=== PATIENT | female | born 1990 | race Caucasian/White ===

== ENCOUNTER → 2018-10-13 11:43 | Outpatient (CLI) | payer OTHER, MEDICAID, SELFPAY ==
--- NOTE | 2018-10-13 11:45 | DI.RAD.S_ITS ---
PROCEDURE: XR CHEST 2V INDICATIONS: Ongoing cough TECHNIQUE: 2 views of the chest were acquired. COMPARISON: None. FINDINGS: Surgical changes and devices: None. Lungs and pleura: There is mild elevation of right hemidiaphragm. Mild pulmonary vascular congestion is noted. No focal infiltrate. No pleural effusions or pneumothorax. Mediastinum: Mediastinal contours are normal. Heart size is normal. Bones and chest wall: No suspicious bony abnormalities. Marked S-shaped scoliosis of thoracic lumbar spine is seen. Soft tissues appear unremarkable. IMPRESSION: Elevation of right hemidiaphragm. Mild pulmonary vascular congestion. No focal infiltrate. Dictated by: Sebas Zuñiga M.D. on 10/13/2018 at 12:12 Approved by: Sebas Zuñiga M.D. on 10/13/2018 at 12:28
== END ==
PROVIDERS: PCP Family Medicine; Visit Provider Registered Nurse
DX: R05 Cough (principal); R09.89 Other specified symptoms and signs involving the circulatory and respiratory systems
CPT/HCPCS: 71046

== ENCOUNTER 2018-11-03 09:30 | Outpatient (RCR) | payer OTHER, MEDICAID, SELFPAY ==
--- NOTE | 2018-10-27 18:49 | ST.OPIE ---
Provider Information Visit Care Team Role Provider Type Adry Lizarraga MD Primary Care Provider Physician Specialty: Family Practice Address: [address] [place] [address], [id number] Email: [email or web address] SALLIE Leyva Attending Provider Advanced [employer] Caretaker Specialty: Medical Address: [facility] [place] [address], [id number] Email: Speech-Language Pathology Initial Evaluation LEGAL TRANSCRIBER Clinical Swallow Evaluation Start: 10/27/18 17:28 Freq: Status: Active Protocol: Document 10/27/18 17:28 MARCI (Rec: 10/27/18 18:13 MARCI [email or web address]) Clinical Swallow Evaluation Session Time Visit Start Time 09:30 Visit Stop Time 10:27 Total Visit Minutes 57 Visit Information Visit Number Initial Evaluation Plan of Care Dates 10/27/18 - 01/20/19 Insurance Information [employer] - Adult Referral Referring Physician SALLIE Leyva Reason for Referral Profound developmental delay; excessive oral secretions, aspiration PNA Setting Assessment Location Outpatient Care Visit Type Note Type Initial Evaluation Next Note Type Next Note Type Treatment Note Patient Information Identification Type Name ID Card History The pt is a 28-yr-old female with 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 She is non-verbal, non- ambulatory, and consumes all nutrition and hydration via tube feeding. She was accompanied today by her mother, Jessie, who provided case history and current concerns. She reported that Nisha typically manages her saliva without issue and recovers normally from colds. However, she contracted a cold around Easter of this year and continued with a wet congestive cough and excessive oral secretions. Recent chest x-ray (10/13/18) revealed Elevation of right hemidiaphragm. Mild pulmonary vascular congestion. No focal infiltrate. Nisha was prescribed Scopolamine patch to manage oral secretions but had an adverse reaction, and it was discontinued. She is scheduled to have surgery in December, and her mother is concerned that her continued symptoms may increase her risk of complications during/after surgery. Nisha has a long history of working with Speech Pathologists throughout her school years to assist with communication and with swallow . She was last seen for dysphagia treatment ~15 yrs ago, per parent report. At that time, swallow exercises and other treatments were ineffective in improving Nisha's function and safety for oral intake, and oral trials for taste only increased Nisha's choking and were discontinued. Her mother also reported that Nisha is orally defensive with a tonic bite reflex, making direct oral manipulation or stimulation not feasible, although Nisha has been tolerant of vibratory stimulation on facial muscles. Furthermore, previous medical certification specialist including unionmelt operator have determined that Nisha's receptive language skills are good, per parent report, but she is unable to produce volitional movements to perform swallow and expressive speech/language. Subjective Observations Nisha arrived with her mother on time for her appointment. Throughout the session, Nisha made eye contact with the Clinician, often smiled and made vocalizations intermittently, particularly when asked a question or to do something, such as cough. She did cough periodically throughout the session as well , and the cough was wet and congestive sounding but unproductive. Nisha's mother provided case history and the desire to improve Nisha's swallow function for safe management of saliva and phlegm to reduce the risk of aspiration pneumonia. Evaluation Oral Phase Comments Oral Peripheral Exam was limited secondary to CP and limited ability for the pt to participate. Nisha was unable to perform volitional actions including oral motor tasks, cough, or swallow. Nisha did open and close her jaw repeatedly for ~ 1 minute; she initiated this action independently and continued it while the Clinician mirrored the action. It is not likely that Nisha was mimicking the Clinician, as her mother reported she frequently performs this action. Nisha has natural dentition in good condition. Oral tissues were appropriate in color. She maintained an open mouth throughout the session; her mother reports she never closes her mouth. Buccal strength and coordination appeared normal with smile reflex. Jaw ROM appears to be good, as observed by Nisha's ability to open and close the mandible repeatedly. Nisha exhibited drooling x2 after spontaneous cough, and mild- moderate oral pooling of saliva was observed consistently. Pharyngeal Phase Comments No oral trials were administered for pt safety. Nisha did not appear to be coughing/choking on her saliva ; rather, coughing appeared to be triggered by pulmonary congestion. However, aspiration of saliva cannot be ruled out without instrumental assessment, which is contraindicated for this patient. Cough and swallow responses are moderately weak, increasing the concern that, if Nisha is able to expel phlegm from lungs and trachea, she is not likely able to expel it from her larynx or her throat, increasing the likelihood of aspiration of phlegm back to lungs. Education was provided RE the possibility of NMES treatment via VitalStim to recruit musculature of swallow; however, this was ruled out after Nisha's mother experienced a trial of the electrical stimulation and determined Nisha would not tolerate the sensation. However, it was determined that a trial of dysphagia therapy using vibratory stimulation to elicit spontaneous swallow to increase strength and coordination of swallow musculature would likely be tolerated by the pt, based on previous therapeutic tolerance . The pt's mother agreed to provide the vibratory stimulator to next session. Findings Dysphagia Type Profound Oropharyngeal Dysphagia secondary to CP requiring tube feeding Rehabilitation Potential Fair Impressions The pt presents with profound oropharyngeal dysphagia secondary to CP requiring tube feeding dependence. Oral dysphagia is characterized by minimal volitional control of oral musculature resulting in pooling of saliva with occasional anterior spillage. The pt appears to be managing swallow of saliva pharyngeally , but this cannot be confirmed without instrumental evaluation, which is contraindicated for this patient. Concern of weak cough and pharyngeal management of phlegm is present, as they significantly increase the pt' s risk of aspiration pneumonia . Referral to Respiratory Therapy is recommended for consultation regarding pulmonary illness and treatment options (e.g., cough assist device, etc.). Diet Recommendations Liquids Order NPO Diet Order NPO/Alternative Means of Nutrition/Hydration Medication Recommendations Not Recommended by Mouth Treatment Plan Placement Recommendations after Home Discharge Appropriate for Therapy Yes Therapy Recommendations A trial of dysphagia therapy using vibratory stimulation at exterior facial and laryngeal structures to elicit spontaneous swallow, thereby exercising swallow musculature , is recommended to increase strength and coordination of the swallow mechanism, improve management of secretions at larynx and pharynx, and reduce the pt's risk of aspiration pneumonia and improve general health prior to surgery in December. Exterior stimulation is advisable d/t the pt's oral defensiveness. The pt's mother was in agreement with this. The pt was informed but unable to communicate understanding. Recommend referral to Respiratory Therapy. Dysphagia Goals 1. Using external facial and laryngeal/pharyngeal stimulation as needed, the pt will perform volitional swallows to increase strength and coordination of swallow musculature and decrease risk of aspiration on oral secretions and phlegm. 2. The pt will exhibit improved management of oral secretions and phlegm, as demonstrated by reduced frequency of congestive cough, to reduce risk of aspiration pneumonia. Referrals/Other Recommended Referrals Other
--- NOTE | 2018-11-03 11:44 | ST.IPDYTX ---
Care Team Visit Care Team Role Provider Type Adry Lizarraga MD Primary Care Provider Physician Specialty: Family Practice Address: [address] [place] [address], [id number] Email: [email or web address] SALLIE Leyva Attending Provider Advanced Emergency Services Dispatcher Specialty: Medical Address: [facility] [place] [address], [id number] Email: BELLSTAND ATTENDANT Dysphagia Treatment BELLSTAND ATTENDANT Dysphagia Treatment Start: 10/27/18 17:28 Freq: Status: Active Protocol: Document 11/03/18 11:11 MARCI (Rec: 11/03/18 11:41 MARCI [email or web address]) Dysphagia Treatment Session Time Visit Start Time 09:33 Visit Stop Time 10:19 Total Visit Minutes 52 Visit Information Visit Number 1 Plan of Care Dates 10/27/18 - 01/20/19 Insurance Information [employer] - Adult Setting Assessment Location Outpatient Care Visit Type Note Type Treatment Note Next Note Type Next Note Type Treatment Note Patient Information Subjective Observations The pt arrived on time accompanied by her mother, who was present throughout the session. Mrs. Sanchez reported having an appt with PCP, Dr. Gary Groves, today. This Clinician did speak with SALLIE Leyva, yesterday RE recommendation for referral to Respitory Therapy (RT) for assessment/consultation RE assistance they may be able to provide to treat chest congestion. Florencia agreed to inform Dr. Groves of this recommendation as well as discuss possibility of medicinal help (e.g., decongestant, expectorant) to aid the pt in clearing phlegm from chest. This was discussed today with the pt and her mother, who was agreeable to discussing these topics further with Dr. Groves. Mrs. Sanchez also informed that she has ordered a vibratory stimulator for the pt, but it has not yet arrived . Finally, she informed the pt will be on vacation with her family over the next ~3 wks, during which time Mrs. Sanchez would perform exercises targeted in today's session. Agreed to f/u with this clinician upon their return. Treatment Oral Strategies [place] Other Additional Dysphagia Treatment Laryngeal massage, labial/oral Strategies stimulation with tongue depressor, oral swab Treatment Activities Consulted with pt/mother RE POC, recommendation for RT assessment/consultation, and tx goals. All questions were answered. Initiated oral motor and layrngeal stimulation to increase pt's ability to elicit swallow trigger and volitional swallow to reduce aspiration risk and improve saliva management. Instructed/informed pt of therapeutic treatment strategies orally and with demonstration. Performed labial lip closure stimulation using tongue depressor at upper/lower lips, then slightly higher than lower lip . Given instructions and model to extend lower lip to make contact with the tongue depressor, the pt initially manipulated depressor with tongue. Given increased demonstration and verbal feedback, she opened/closed jaw repetitiously making contact with tongue depressor. Skilled encouragement and verbal feedback provided. Given placement of depressor slightly lower than upper lip, the pt made no attempt with upper lip to make contact with depressor, indicating reduced volitional control of upper lip. Attempted to trigger swallow relex of saliva using an oral swab at lips, then between upper/lower teeth, and between teeth and cheeks. An additional goal of this technique was to reduce oral defensiveness in the event the pt would benefit from suctioning to assist in removal of phlegm from oral or pharyngeal cavities. The pt was accepting of swab at lips and between teeth, and chewed on the swab when placed between the teeth. She was resistant to placement of swab between teeth and cheeks, increasing labial rounding and buccal tightening to prevent, which demonstrated well labial ROM and strength of these muscle groups. Laryngeal and external buccal massage was performed to assist in triggering swallow of saliva. Laryngeal pumping was observed via palpation x1. Throughout the session, the pt exhibited consistent drooling , increased during oral stimulation activities, which was managed by the clinician or pt's mother wiping away for the pt. The pt exhibited no gag reflex during all treatment activities. Assessment Assessment of Improvement The pt responded well to treatment activities with occasional mild-moderate resistance toward stimulation inside the oral cavity. However, as she became familiar with the sensations, particularly those at the lips , she became more accepting. She did not accept an oral swab between teeth and cheeks; however, her response prompted strong rounding of lips and contraction of buccal musculature not otherwise elicited, indicating a good technique for strengthening of these muscle groups. The pt's mother was participatory and responsive throughout the treatment with all activities and demonstrated excellent understanding to facilitate home practice. Diet Recommendations Recommendations Continue Current Diet Liquids Order NPO Diet Order NPO/Alternative Means of Nutrition/Hydration Medication Recommendations Not Recommended by Mouth Treatment Plan Placement Recommendation after Discharge Home Appropriate for Continued Therapy Yes Therapy Recommendations A trial of dysphagia therapy using vibratory stimulation at exterior facial and laryngeal structures to elicit spontaneous swallow, thereby exercising swallow musculature , is recommended to increase strength and coordination of the swallow mechanism, improve management of secretions at larynx and pharynx, and reduce the pt's risk of aspiration pneumonia and improve general health prior to surgery in December. Exterior stimulation is advisable d/t the pt's oral defensiveness. The pt's mother was in agreement with this. The pt was informed but unable to communicate understanding. Recommend referral to Respiratory Therapy. Dysphagia Goals 1. Using external facial and laryngeal/pharyngeal stimulation as needed, the pt will perform volitional swallows to increase strength and coordination of swallow musculature and decrease risk of aspiration on oral secretions and phlegm. 2. The pt will exhibit improved management of oral secretions and phlegm, as demonstrated by reduced frequency of congestive cough, to reduce risk of aspiration pneumonia. Follow Up Plan In 3 wks after the family's vacation Referrals/Other Recommended Referrals Other
== END 2019-02-04 11:06 | disposition home or self-care (01) ==
LOC: SP 09:30
PROVIDERS: PCP Family Medicine; Visit Provider Registered Nurse
DX: R62.50 Unspecified lack of expected normal physiological development in childhood (principal); Z87.09 Personal history of other diseases of the respiratory system; J98.8 Other specified respiratory disorders
CPT/HCPCS: 92526; 92610

== ENCOUNTER → 2024-11-01 12:02 | Outpatient (CLI) | payer OTHER, SELFPAY ==
--- NOTE | 2024-11-01 12:08 | DI.RAD.S_ITS ---
PROCEDURE: XR CHEST 2V INDICATIONS: Please evaluate for aspiration pneumonia. Quadriplegic on G-tube TECHNIQUE: 2 views of the chest were acquired. COMPARISON: [facility], CR, XR CHEST 2V, 10/13/2018, 11:49. FINDINGS: Surgical changes and devices: None. Lungs and pleura: No focal infiltrates are seen. Lung volumes are low. There is elevation of the right hemidiaphragm. Mediastinum: Mediastinal contours are normal. Heart size is normal. Bones and chest wall: No suspicious bony abnormalities. There is significant S shaped scoliosis. The bones demonstrate osteopenia. Soft tissues appear unremarkable. IMPRESSION: No focal infiltrates are identified. Stable elevation of the right hemidiaphragm. Significant S shaped scoliosis. 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 Dictated by: Edwin Rico M.D. on 11/01/2024 at 11:44 Approved by: Edwin Rico M.D. on 11/01/2024 at 11:45
== END ==
PROVIDERS: PCP Family Medicine; Referring Provider Chiropractor; Visit Provider Chiropractor
DX: R05.1 Acute cough (principal); M41.9 Scoliosis, unspecified
CPT/HCPCS: 71046